=== PATIENT | female | born 2000 | race Caucasian/White ===

== ENCOUNTER → 2023-09-10 | Outpatient (CLI) | payer OTHER, SELFPAY ==
[2023-09-10 13:08] LABS: hCG Titer Quant., Serum < 1 mIU/mL (1-3)
== END | disposition home or self-care (01) ==
LOC: MTLAB 10:21
PROVIDERS: Referring Provider Dermatology; Visit Provider Dermatology
DX: L70.0 Acne vulgaris (principal)
CPT/HCPCS: 36415; 84702

== ENCOUNTER → 2023-10-16 | Outpatient (CLI) | payer OTHER, SELFPAY ==
[2023-10-16 15:24] LABS: Internal QC Validated? YES +Cl - CLEAR BKGD; Pregnancy, Urine Negative Negative
== END | disposition home or self-care (01) ==
LOC: MTLAB 12:43
PROVIDERS: Referring Provider Dermatology; Visit Provider Dermatology
DX: L70.0 Acne vulgaris (principal)
CPT/HCPCS: 81025

== ENCOUNTER → 2023-11-07 | Outpatient (CLI) | payer OTHER, SELFPAY ==
[2023-11-07 15:18] LABS: Internal QC Validated? YES +Cl - CLEAR BKGD; Pregnancy, Urine Negative Negative
== END | disposition home or self-care (01) ==
PROVIDERS: Referring Provider Dermatology; Visit Provider Dermatology
DX: L70.0 Acne vulgaris (principal); K13.0 Diseases of lips; L85.3 Xerosis cutis; Z79.899 Other long term (current) drug therapy
CPT/HCPCS: 81025

== ENCOUNTER → 2023-12-12 | Outpatient (CLI) | payer OTHER, SELFPAY ==
[2023-12-12 17:37] LABS: Internal QC Validated? YES +Cl - CLEAR BKGD; Pregnancy, Urine Negative Negative
--- OUTSIDE RECORDS SUMMARY | 2023-12-12 19:50 | XMS RPT_ITS | CCD ---
Author Name Unknown Address [id number] [place] [address] Organization [facility] Care Team Providers Care Dental Laboratory Assistant Name Role Phone ROSSY NANETTE Alvarez Referring Unavailable SELF, SELF Referring Unavailable ARETHA RODRIGES Attending Unavailable NAA MURPHY Attending Unavailable SELF, SELF Referring Unavailable ELYSSA PICKARD Admitting Unavailable NO, PHYSICIAN Primary Care Unavailable Unavailable Primary Care Provider UnavailCHON Castillo Primary Care Unavailable CHON ADHIKARI Primary Care Unavailable PANCHITO WHITING Attending Unavailable CHON ADHIKARI Primary Care Unavailable PANCHITO WHITING Attending Unavailable MARIA FERNANDA DURON Primary Care Unavailable MEME MARMOLEJO Referring Unavailable Maria Fernanda Duron MD Primary Care Provider Evelyn Branham DO Unavailable [phone] MARIA FERNANDA DURON Primary Care Unavailable EVELYN BRANHAM DO Attending Unavailable MEME MARMOLEJO Attending Unavailable MEME MARMOLEJO Referring Unavailable Allergies Allergy Classification Reported Allergen(s) Allergy Type Date of Onset Reaction(s) Facility (3 sources) Spironolactone; Translations: [SPIRONOLACTONE] Drug Allergy 01-19-2023 Itching [facility] Other [facility] Medications Completed/Discontinued Medications Medication Drug Class(es) Dates Sig (Normalized) Sig (Original) dapsone 0.075 mg/mg topical gel (1 source) Sulfone Start: 10-05-2022 End: 10-10-2023 ACZONE 7.5 % dienogest / Estradiol (1 source) Progestin, Estrogen Start: 01-19-2023 take 1 tablet by mouth once daily Estradiol Valerate-Dienoges t (NATAZIA) 3 mg/2 mg-2 mg/ 2 mg-3 mg/1 mg Take 1 tablet by mouth once daily. 84 tablet 4 01/19/2023 Active Problems Active Problems Problem Classification Problem Date Documented Date Episodic/Chronic Cardiac dysrhythmias (2 sources) Supraventricular tachycardia; Translations: [SVT (supraventricular tachycardia)] Onset: 01-19-2023 10-10-2023 Chronic Cardiac dysrhythmias (2 sources) Palpitations; Translations: [Palpitations] Onset: 10-10-2023 10-10-2023 Episodic Malaise and fatigue (1 source) Other fatigue; Translations: [Other fatigue] Onset: 01-19-2023 Episodic Other skin disorders (1 source) Acne; Translations: [Acne, unspecified] Onset: 09-17-2023 10-10-2023 Episodic Past or Other Problems Problem Classification Problem Date Documented Da te Episodic/Chronic Other nervous system disorders (1 source) H/O: migraine; Translations: [Personal history of other diseases of the nervous system and sense organs] Onset: 01-19-2023 01-19-2023 Episodic Results Test Name Value Interpretation Reference Range Facil ity Vital Signs Date Time Vital Sign Value Performing Clinician Faci lity 10-10-2023 11:07-0500 Body height 160 cm Evelyn Trinean Phone: [facility] 10-10-2023 11:07-0500 Body weight 65.2 kg Evelyn Trinean Phone: [facility] 10-10-2023 11:07-0500 Diastolic blood pressure 64 mm[Hg] Evelyn [place] [employer] Work Phone: [facility] 10-10-2023 11:07-0500 Heart rate 74 /min Evelyn [employer] Work Phone: [facility] 10-10-2023 11:07-0500 SaO2% (BldA) [Mass fraction] 98 % Evelyn [place] [employer] Work Phone: [facility] 10-10-2023 11:07-0500 Systolic blood pressure 102 mm[Hg] Evelyn [employer] Work Phone: [facility] Encounters Encounter Date Encounter Type Care Provider Facility Start: 10-10-2023 End: 10-10-2023 ambulatory MARIA FERNANDA DURON Facility:[facility] Start: 10-10-2023 End: 10-10-2023 Patient encounter procedure Evelyn Branham DO Work Phone: Cardiology Procedures Date Procedure Procedure Detail Performing Clinician Start: 10-10-2023 Ecg routine ecg w/le ast 12 lds i&r only [facility] Provider Plan of Treatment Date Care Activity Detail Author Start: 04-11-2031 Urine microalbumin profile DTa P,Tdap,Td Vaccine (4 - Td or Tdap) [facility] Start: 01-19-2026 Screening for malign ant neoplasm of cervix Pap Testing [facility] Start: 01-20-2024 GC (Gonorrhea) Scree maday () GC (Gonorrhea) Screening () [facility] Payers Date Payer Category Payer Unknown [id number] 2008 Private Health Insurance 2001 Unknown [id number] [id number] 2001 Unknown [id number] [id number]. [id number] 2001 Unknown [id number] 2.16. [id number] 2001 Unknown [id number] 2.16. [id number] 2001 Unknown [id number] [id number] 2001 Unknown [id number] [id number] 2001 Unknown [id number] [id number] Social History Date Type Detail Facility Tobacco smoking status [facility] Start: 2000 Sex Assigned At Not on file [employer] Work Phone: Start: 11-19-2015 Tobacco smoking status ORIS Never smoked tobacco [facility] Start: 10-10-2023 Alcohol intake Current drinke r of alcohol (finding) [facility] Start: 10-10-2023 History of Social function [facility] Start: 10-10-2023 Tobacco use panel [facility] National Score (1-100), lower number is lower risk 42 [facility] Start: 01-19-2023 Alcohol Comment rare [facility] Progress note 10-10-2023 Note Date & Type Note Facility 10-10-2023 Note HNO ID: [id number] Author: Evelyn Branham DO Service: ? Author Type: Physician Type: Progress Notes Filed: 10/10/2023 11:46 AM Note Text: [facility] [place] [facility] Department of Cardiovascular Medicine SECTION OF [facility] C[facility]IOLOG[facility] OUTPATIENT VISIT DATE October 10, 2023 OUTPATIENT VISIT TYPE NEW PATIENT Name: Val Campbell : 2000 Date: October 10, 2023 PRIMARY CARE PHYSICIAN: [place] [address] REFERRING PHYSICIAN: SELF CHIEF COMPLAINT: Patient presents with: CARD New Patient Consult: Previously saw Dr Jose Mijares [facility] in [facility]- Palpitations, heart racing followed w/ symptoms of lightheadedness and mid-sternal chest tightness w/ activity. Episodes lasted 5-15 mins. Last episode 2 years ago. Currently has intermittent chest pain while working out lasting 5 mins. Not severe enough to stop activity. Some heart flutters . Denies SOB, lightheadedness, syncope IMPRESSION / PLAN: 1. Palpitations and possible PSVT. Patient has had symptoms of palpitations and feeling of a racing heartbeat as a child but no definitive documentation of arrhythmias has been noted. Previous cardiac workup included echocardiogram and heart monitoring which were all normal. She does have an Apple Watch but is unaware of the ability to use and document rhythm strips and discussed with her and she agrees to look into it. When she is able to document rhythm strips at the time of her symptoms will determine the extent of the problem and potential use of medications if necessary. If she is unable to document any arrhythmias would consider event recording at that time. She does not use any illicit drugs or caffeine. She has not noticed any correlation to control pills. 2. Atypical chest pain. Follow Up Instructions Return for As Needed. ORDERS FOR TODAY'S VISIT: Office Visit on 10/10/23 ECG COMPLETE HISTORY OF PRESENT ILLNESS: Val Campbell is an 23 year old female with a past history of palpitations for approximately 3 to 4 years and had seen a pediatrician in the past who performed routine evaluation with no evidence of arrhythmias detected and a normal echocardiogram. She does continue to have some intermittent palpitations but nothing sustained and more provoked with quick exertional activity. She does have some occasional chest discomfort and denies shortness of breath, syncope or near syncope or lower extremity edema. PAST MEDICAL HISTORY Diagnosis Date History of migraine no aura, may have beenrelated to SVT Palpitations SVT (supraventricular tachycardia) last issues in HS (~) PAST SURGICAL HISTORY Procedure Laterality Date NONE SOCIAL HISTORY Social History Tobacco Use Smoking status: Never Vaping Use Vaping Use: Never used Substance Use Topics Alcohol use: Yes Comment: rare soical Drug use: No FAMILY HISTORY Problem Relation Age of Onset No Known Problems Mother No Known Problems Father No Known Problems Brother Breast Cancer Maternal great-grandmother Cervical Cancer No Family History Ovarian cancer No Family History Uterine Cancer No Family History Colon Cancer No Family History Pancreatic Cancer No Family History Prostate Cancer No Family History ALLERGIES: ALLERGIES Allergen Reactions Spironolactone Itching MEDICATIONS: Estradiol Valerate-Dienogest (NATAZIA) 3 mg/2 mg-2 mg/ 2 mg-3 mg/1 mg Take 1 tablet by mouth once daily. triamcinolone acetonide (KENALOG) 0.1 % cream apply to affected areas on body twice a day for 2 weeks per month as needed ACZONE 7.5 % WINLEVI 1 % crea REVIEW OF SYSTEMS: GENERAL: Negative for: Weight loss or gain, Fever or Chills NECK: Negative for: Swelling, Pain, Stiffness RESPIRATORY: Negative for: Cough, Blood in Sputum GASTROINTESTINAL: Negative for: Trouble swallowing, Heartburn, Change in bowel habits, Blood in stool, Dark black stools MUSCULOSKELETAL: Negative for: Severe Muscle or joint pain, Stiffness , Joint swelling NEUROLOGIC/PSYCHIATRIC: Negative for: Paralysis, Numbness, Tingling, Tremor SKIN: Negative for: Rashes, Itching HEMATOLOGICAL/LYMPHATIC: Negative for: Easy bruising , Easy bleeding ENDOCRINE: Negative for: Heat or cold intolerance, Excessive sweating, Frequent urination All other review of systems, per history of present illness. PHYSICAL EXAMINATION: BP 102/64 Pulse 74 Ht 160 cm (5' 3 ) Wt 65.2 kg (143 lb 11.8 oz) LMP 11/05/2022 (Approximate) SpO2 98% BMI 25.46 kg/m? Last 2 Encounter Wt Readings: Date: Wt: 01/19/2023 64.1 kg (141 lb 6.4 oz) 11/19/2015 54.4 kg (120 lb) (65%, Z= 0.40)* General: Well appearing, in no acute distress. Skin: No clubbing, no cyanosis. Eyes: Extra ocular movements intact Oropharynx: No gross abn (more content not included)... [facility] History of Present illness Narrative 10-10-2023 Evelyn Branham, DO - 10/10/2023 11:02 AM EST Note Date & Type Note Facility 10-10-2023 History of Presen t illness Narrative [facility] [place] [facility] Department of Cardiovascular Medicine [facility] OUTPATIENT VISIT DATE October 10, 2023 OUTPATIENT VISIT TYPE NEW PATIENT Name: Val Campbell : 2000 Date: October 10, 2023 PRIMARY CARE PHYSICIAN: [place] [address] REFERRING PHYSICIAN: SELF CHIEF COMPLAINT: Patient presents with: CARD New Patient Consult: Previously saw Dr Jose Mijares - [facility] in [place]- Palpitations, heart racing followed w/ symptoms of lightheadedness and mid-sternal chest tightness w/ activity. Episodes lasted 5-15 mins. Last episode 2 years ago. Currently has intermittent chest pain while working out lasting 5 mins. Not severe enough to stop activity. Some heart flutters . Denies SOB, lightheadedness, syncope IMPRESSION / PLAN: 1. Palpitations and possible PSVT. Patient has had symptoms of palpitations and feeling of a racing heartbeat as a child but no definitive documentation of arrhythmias has been noted. Previous cardiac workup included echocardiogram and heart monitoring which were all normal. She does have an [employer] vascular solution Watch but is unaware of the ability to use and document rhythm strips and discussed with her and she agrees to look into it. When she is able to document rhythm strips at the time of her symptoms will determine the extent of the problem and potential use of medications if necessary. If she is unable to document any arrhythmias would consider event recording at that time. She does not use any illicit drugs or caffeine. She has not noticed any correlation to control pills. 2. Atypical chest pain. Follow Up Instructions Return for As Needed. ORDERS FOR TODAY'S VISIT: Office Visit on 10/10/23 ECG COMPLETE HISTORY OF PRESENT ILLNESS: Val Campbell is an 23 year old female with a past history of palpitations for approximately 3 to 4 years and had seen a pediatrician in the past who performed routine evaluation with no evidence of arrhythmias detected and a normal echocardiogram. She does continue to have some intermittent palpitations but nothing sustained and more provoked with quick exertional activity. She does have some occasional chest discomfort and denies shortness of breath, syncope or near syncope or lower extremity edema. PAST MEDICAL HISTORY Diagnosis Date History of migraine no aura, may have beenrelated to SVT Palpitations SVT (supraventricular tachycardia) last issues in HS (~2020ish) PAST SURGICAL HISTORY Procedure Laterality Date NONE SOCIAL HISTORY Social History Tobacco Use Smoking status: Never Vaping Use Vaping Use: Never used Substance Use Topics Alcohol use: Yes Comment: rare soical Drug use: No FAMILY HISTORY Problem Relation Age of Onset No Known Problems Mother No Known Problems Father No Known Problems Brother Breast Cancer Maternal great-grandmother Cervical Cancer No Family History Ovarian cancer No Family History Uterine Cancer No Family History Colon Cancer No Family History Pancreatic Cancer No Family History Prostate Cancer No Family History ALLERGIES: ALLERGIES Allergen Reactions Spironolactone Itching MEDICATIONS: Estradiol Valerate-Dienogest (NATAZIA) 3 mg/2 mg-2 mg/ 2 mg-3 mg/1 mg Take 1 tablet by mouth once daily. triamcinolone acetonide (KENALOG) 0.1 % cream apply to affected areas on body twice a day for 2 weeks per month as needed ACZONE 7.5 % WINLEVI 1 % crea REVIEW OF SYSTEMS: GENERAL: Negative for: Weight loss or gain, Fever or Chills NECK: Negative for: Swelling, Pain, Stiffness RESPIRATORY: Negative for: Cough, Blood in Sputum GASTROINTESTINAL: Negative for: Trouble swallowing, Heartburn, Change in bowel habits, Blood in stool, Dark black stools MUSCULOSKELETAL: Negative for: Severe Muscle or joint pain, Stiffness , Joint swelling NEUROLOGIC/PSYCHIATRIC: Negative for: Paralysis, Numbness, Tingling, Tremor SKIN: Negative for: Rashes, Itching HEMATOLOGICAL/LYMPHATIC: Negative for: Easy bruising , Easy bleeding ENDOCRINE: Negative for: Heat or cold intolerance, Excessive sweating, Frequent urination All other review of systems, per history of present illness. PHYSICAL EXAMINATION: BP 102/64 Pulse 74 Ht 160 cm (5' 3 ) Wt 65.2 kg (143 lb 11.8 oz) LMP 11/05/2022 (Approximate) SpO2 98% BMI 25.46 kg/m Last 2 Encounter Wt Readings: Date: Wt: 01/19/2023 64.1 kg (141 lb 6.4 oz) 11/19/2015 54.4 kg (120 lb) (65%, Z= 0.40)* General: Well appearing, in no acute distress. Skin: No clubbing, no cyanosis. Eyes: Extra ocular movements intact Oropharynx: No gross abnormalities Neck: No jugular venous distention, no carotid bruits, carotids have a normal upstroke, no palpable thyromegaly. Lungs: Clear to auscultation bilaterally, no wheezing or rhonchi. Heart: Regular rhythm, PMI not displaced, S1, S2, no S3, no S4, no murmur. Abdomen: Soft, nontender, bowel sounds normal, no palpable organomegaly, no bruits. Extremities: No peripheral edema . +2 distal pulses bilaterally. Neuro: Oriented to person, place and time, alert, cooperative. CARDIOVASCULAR MEDICINE TESTING: I have personally reviewed Electrocardiogram: Normal sinus rhythm otherwise unremarkable Evelyn Branham DO, [facility] Staff Polymerization Engineer [facility] Dept. of Cardiovascular Medicine [facility] [place] This document was generated using the assistance of voice recognition software. If there are any errors of spelling, grammar, syntax or meaning, please feel free to contact me directly at anytime. documented in this encounter [facility] Progress note 01-19-2023 Note Date & Type Note Facility 01-19-2023 Note HNO ID: [id number] Author: Meme Marmolejo MD Service: ? Author Type: Physician Type: Progress Notes Filed: 01/19/2023 1:02 PM Note Text: Val is a 22 year old No obstetric history on file. who presents for an annual gynecologic exam with complaints, weight gain (states typically ~120#, now 140#) as well as fatigue- will check thyroid (aware for follow up/management would be with PCP) Additionally, sometimes has pain with insertion @ sex (but not all the time)- does use lube; AND occasionally has difficulty with tampons.. Thorough past history obtained/updated/reviewed with today's visit. Pt states there are no significant changes to her past medical and surgical history. Stitch Burnisher offered: Patient declines. Menses: pill related amenorrhea (occasionally will have just ~1d light spotting on placebo, minimal associated dysmenorrhea, no meds) Contraception: combined hormonal contraceptives, condoms, and not currently active HPV vaccine: No Last Pap: never HPV: N/A History of abnormal pap: N/A Last mammogram: never Sexually active: Not currently History of STDS: None Patient concerns for STD exposure: No. Number of lifetime partners: 1 OB History No obstetric history on file. Criminal Intelligence Specialist History LMP: 11/05/2022 (Approximate), Having periods Age at Menarche: Age at First : Age at Menopause: Criminal Intelligence Specialist History Comments: Sexual Activity: Not Currently; Male Contraception: Pill, Condom PAST MEDICAL HISTORY Diagnosis Date History of migraine no aura, may have beenrelated to SVT SVT (supraventricular tachycardia) ([facility]) last issues in HS (~) PAST SURGICAL HISTORY Procedure Laterality Date NONE FAMILY HISTORY Problem Relation Age of Onset Breast Cancer Maternal great-grandmother Cervical Cancer No Family History Ovarian cancer No Family History Uterine Cancer No Family History Colon Cancer No Family History Pancreatic Cancer No Family History Prostate Cancer No Family History SOCIAL HISTORY Social History Tobacco Use Smoking status: Never Vaping Use Vaping Use: Never used Substance Use Topics Alcohol use: Yes Comment: rare soical Drug use: No REVIEW OF SYSTEMS Abdomen: No abdominal pain, nausea, vomiting, diarrhea, or constipation. No bloating, early satiety, indigestion, or increased flatulence. Bladder: No dysuria, gross hematuria, urinary frequency, urinary urgency, or incontinence. Breast: No breast lumps, nipple d/c, overlying skin changes, redness or skin retraction and +/-SBE normal. Allergies and current medication updated:Yes EXAM: BP 104/64 Wt 141 lb 6.4 oz (64.1kg) LMP 11/05/2022 GENERAL: pleasant, female in no apparent distress HEENT: Normocephalic, atraumatic, mucus membranes moist, and no lesions NECK: Supple, full range of motion, no adenopathy, and thyroid normal DERMATOLOGY: Normal, without lesions, non-icteric, and non-hirsute BREAST: soft, non-tender, symmetric, no dominant mass, normal nipple-areolar complex, no lymphadenopathy, and no nipple discharge CHEST: Clear to auscultation, Normal inspiratory effort, and Regular rate and rhythm ABDOMEN: soft, non-tender, and no masses PELVIC: external genitalia normal, normal Bartholin's glands, urethra, [employer]'s glands, no vulvar lesions, no cervical lesions, good vaginal support, physiologic discharge present, normal appearing perineal body and perianal region; moderately tight introitus (?possible vaginismus) BIMANUAL: uterus normal size, shape and consistency, no adnexal masses, and non-tender RECTOVAGINAL: deferred. NEURO: alert and oriented x3,exam grossly non-focal EXTREMITIES: normal ASSESSMENT/PLAN: 1) Health maintenance: Pap done with reflex HPV. Mammogram starting age 40. Nutrition, exercise and routine health maintenance exams reviewed. Calcium/Vitamin D supplementation information provided. HPV vaccine: discussed, literature given Fatigue/weight issues- check thyroid Possible vaginismus- PFPT referral 2) Contraception: combined hormonal contraceptives, condoms, and not currently active. 3) STD screening: Declined STD check. 4) Follow up one year or sooner as needed 3) Pt made aware that we will notify of Abnormal results only. I will use her MyChart as needed for results, she may contact office to get any results at her convenience. The following approved medication requests have been transmitted electronically. Requested Prescriptions Signed Prescriptions Disp Refills Estradiol Valerate-Dienogest (NATAZIA) 3 mg/2 mg-2 mg/ 2 mg-3 mg/1 mg 84 tablet 4 Sig: Take 1 tablet by mouth once daily. Electronically submitted to her pharmacy ([facility]). Meme Marmolejo MD [facility] Evaluation note Note Date & Type Note Facility documented in this encounter [facility] Summary Purpose Family History No Family History Records FoundNo Family History Records FoundNo Family History Records FoundNo Family History Records FoundNo Family History Records FoundNo Family History Records FoundNo Family History Records Found Advance Directives No Advanced Directives Records FoundNo Advanced Directives Records FoundNo Advanced Directives Records FoundNo Advanced Directives Records FoundNo Advanced Directives Records FoundNo Advanced Directives Records FoundNo Advanced Directives Records Found Additional Source Comments INFORMATION SOURCE (unrecogn ized section and content) DATE CREATED AUTHOR AUTHOR'S ORGANIZ ATION 11/29/2021 [facility] DATE CREATED AUTHOR AUTHOR'S ORGANIZ ATION 12/28/2021 [facility] DATE CREATED AUTHOR AUTHOR'S ORGANIZ ATION 07/05/2022 [facility] DATE CREATED AUTHOR AUTHOR'S ORGANIZ ATION 07/22/2022 [facility] DATE CREATED AUTHOR AUTHOR'S ORGANIZ ATION 01/24/2023 [facility] DATE CREATED AUTHOR AUTHOR'S ORGANIZ ATION 10/22/2023 [facility] Source Comments (unrecognize d section and content) In the event this informatio n is protected by the Federal Confidentiality of Alcohol and Drug Abuse Patient Records regulations: The Federal rules restrict any use of the information to criminally investigate or prosecute any alcohol or drug abuse patient.[facility] Reason for Visit (unrecogniz ed section and content) Care Teams (unrecognized sec tion and content) FOR RECORDS PERTAINING TO PATIENTS WHO ARE OR HAVE BEEN ENROLLED IN A CHEMICAL DEPENDENCY/SUBSTANCEABUSE PROGRAM, SOME INFORMATION MAY BE OMITTED. This clinical summary was aggregated from multiple sources. Caution should be exercised in using it in the provision of clinical care. This summary normalizes information from multiple sources, and as a consequence, information in this document may materially change the coding, format and clinical context of patient data. In addition, data may be omitted in some cases. CLINICAL DECISIONS SHOULD BE BASED ON THE PRIMARY CLINICAL RECORDS. [facility] [employer] [facility]. provides no warranty or guarantee of the accuracy or completeness of information in this document.
== END | disposition home or self-care (01) ==
LOC: MTLAB 16:30
PROVIDERS: Referring Provider Dermatology; Visit Provider Dermatology
DX: L70.0 Acne vulgaris (principal); Z79.899 Other long term (current) drug therapy
CPT/HCPCS: 81025

== ENCOUNTER → 2024-02-25 | Outpatient (CLI) | payer OTHER, SELFPAY ==
[2024-02-25 17:33] LABS: Internal QC Validated? YES +Cl - CLEAR BKGD; Pregnancy, Urine Negative Negative
== END | disposition home or self-care (01) ==
LOC: MTLAB 15:32
PROVIDERS: Referring Provider Dermatology; Visit Provider Dermatology
DX: L70.0 Acne vulgaris (principal); L90.5 Scar conditions and fibrosis of skin; Z79.899 Other long term (current) drug therapy
CPT/HCPCS: 81025

== ENCOUNTER → 2024-04-01 | Outpatient (CLI) | payer OTHER, SELFPAY ==
[2024-04-01 18:10] LABS: Internal QC Validated? YES +Cl - CLEAR BKGD; Pregnancy, Urine Negative Negative
== END | disposition home or self-care (01) ==
LOC: MTLAB 14:09
PROVIDERS: Referring Provider Dermatology; Visit Provider Dermatology
DX: L70.0 Acne vulgaris (principal); L90.5 Scar conditions and fibrosis of skin; Z79.899 Other long term (current) drug therapy
CPT/HCPCS: 81025

== ENCOUNTER → 2024-05-06 | Outpatient (CLI) | payer OTHER, SELFPAY ==
[2024-05-06 17:42] LABS: Internal QC Validated? YES +Cl - CLEAR BKGD; Pregnancy, Urine Negative Negative
== END | disposition home or self-care (01) ==
PROVIDERS: Referring Provider Dermatology; Visit Provider Dermatology
DX: L70.0 Acne vulgaris (principal); L90.5 Scar conditions and fibrosis of skin; Z79.899 Other long term (current) drug therapy
CPT/HCPCS: 81025

== ENCOUNTER → 2024-06-16 | Outpatient (CLI) | payer OTHER, SELFPAY ==
[2024-06-16 11:32] LABS: Internal QC Validated? YES +Cl - CLEAR BKGD; Pregnancy, Urine Negative Negative
== END | disposition home or self-care (01) ==
LOC: MTLAB 08:18
PROVIDERS: Referring Provider Dermatology; Visit Provider Dermatology
DX: L70.0 Acne vulgaris (principal); L90.5 Scar conditions and fibrosis of skin; Z79.899 Other long term (current) drug therapy
CPT/HCPCS: 81025